=== PATIENT | female | born 1990 | race Caucasian/White ===

== ENCOUNTER 2017-02-12 17:57 | Emergency (ER) | payer OTHER ==
[~2017-02-12] VITALS: Ht 162.6 cm; Wt 73.3 kg
[~2017-02-12 17:57] MED LIST: ACET-1256 PO; IBUP-1050 PO; NAPR-1169 PO
[2017-02-12 18:01] VITALS: TEMP 36.7; Ht 162.6 cm; Wt 73.3 kg
--- NOTE | 2017-02-12 18:29 | EMERGENCY ROOM VISIT NOTE ---
History Report prepared by Allyson: Sakina Barba Under the Supervision of: Dr. Godwin Sim M.D. First contact with patient: 18:07 Chief Complaint: PELVIC PAIN Stated Complaint: IUD,PAIN IN BACK HIP L PART OF ABD History of Present Illness The patient is a 26 year old female who presents to the Emergency Room with complaints of persistent diarrhea that began one week ago. She currently rates her discomfort as a 6/10 in severity. The patient states that for the last week she has had persistent diarrhea, and states that when she eats she becomes nauseous and bloated. She additionally notes some vomiting. The patient notes pain in her right lower abdomen, right hip, and lower back. She denies any recent antibiotics. The patient denies any history of abdominal surgeries. She states that her last menstrual cycle was 2 months ago. The patient states that she has an IUD and states that since she had it placed, she has had ongoing issues. She states that she is in the process of getting her IUD removed. The patient declined any pain medications at this time, stating that the pain medications do not work for her. Source of History: patient Onset: one week ago Position: other (global) Symptom Intensity: 6/10 Quality: other (diarrhea) Timing: other (persistent) Associated Symptoms: + abdominal pain, + back pain (lower back), + nausea, + vomiting Note: Associated Symptoms: right hip pain, bloating Review of Systems See HPI for pertinent positives & negatives. A total of 10 systems reviewed and were otherwise negative. Past Medical & Surgical Medical Problems: (1) Asthma, Unspecified (2) Patient currently Family History Patient reports no known family medical history. Social History Smoking Status: Former Smoker Alcohol Use: occasionally Marital Status: single Housing Status: lives with family Occupation Status: employed Current/Historical Medications Scheduled Levonorgestrel (Iud) (Mirena), INT UTER UD Multivitamins/Minerals (Mvi With Minerals), 1 TAB PO DAILY Ondasetron Odt (Zofran Odt), 4 MG SL Q6H Scheduled PRN Acetaminophen (Tylenol), 1,000 MG PO UD PRN for Headache or Pain Ibuprofen (Advil Migraine), 1 TAB PO DAILY PRN for Headache or Pain Phenylephrine-Ibuprofen (Advil Sinus Congestion & 10-200 mg), 1 TAB PO DAILY PRN for PRN Allergies Coded Allergies: No Known Allergies (Unverified , 11/14/15) Physical Exam Vital Signs Date Time Temp Pulse Resp B/P Pulse Ox O2 Delivery O2 Flow Rate FiO2 02/12/17 20:38 85 18 115/84 100 Room Air 02/12/17 19:31 85 18 116/73 100 02/12/17 18:01 36.7 82 16 117/74 99 Room Air Physical Exam GENERAL: Patient is a healthy-appearing well-nourished HEAD: Normocephalic atraumatic EYES: Ocular movements intact pupils equal and react to light OROPHARYNX mucous membranes are moist no exudates present no erythema or edema present NECK: Supple no nuchal rigidity CHEST: Good equal expansion LUNGS: Clear and equal to auscultation CARDIAC: Normal S1 and S2 ABDOMEN: Soft nontender no guarding BACK: No CVA tenderness EXTREMITIES: No pain upon palpation normal muscle strength in all groups no clubbing cyanosis or edema NEURO: Patient is following commands is answering questions appropriately. Alert and oriented x3 Cranial Nerves 2-12 grossly intact Medical Decision & Procedures ER Provider Diagnostic Interpretation: X-ray results as stated below per interpretation by me and the radiologist: ABDOMEN 2VIEW W/PA CHEST RTN CLINICAL HISTORY: Pt c/o abd pain COMPARISON STUDY: Lidocaine 2015 FINDINGS: The soft tissues, psoas shadows, renal outlines and intestinal gas pattern appear normal. There is no evidence for bowel obstruction. There is no evidence for free intraperitoneal air. No abnormal abdominal calcifications are seen. A frontal view of the chest was performed and is unremarkable. IMPRESSION: Normal study. Electronically signed by: Osmin Pitts M.D. 02/12/2017 7:32 PM Dictated Date/Time: 02/12/2017 7:31 PM Laboratory Results 02/12/17 18:54 Red Blood Count 4.78, Mean Corpuscular Volume 81.2, Mean Corpuscular Hemoglobin 28.2, Mean Corpuscular Hemoglobin Concent 34.8, Mean Platelet Volume 11.0, Neutrophils (%) (Auto) 69.5, Lymphocytes (%) (Auto) 21.4, Monocytes (%) (Auto) 7.8, Eosinophils (%) (Auto) 0.7, Basophils (%) (Auto) 0.4, Neutrophils # (Auto) 6.32, Lymphocytes # (Auto) 1.95, Monocytes # (Auto) 0.71, Eosinophils # (Auto) 0.06, Basophils # (Auto) 0.04 02/12/17 18:54 Test 02/12/17 18:41 02/12/17 18:54 Urine Color YELLOW Urine Appearance CLEAR (CLEAR) Urine pH 5.5 (4.5-7.5) Urine Specific [place] 1.010 (1.000-1.030) Urine Protein NEG (NEG) Urine Glucose (UA) NEG (NEG) Urine Ketones NEG (NEG) Urine Occult Blood TRACE (NEG) Urine Nitrite NEG (NEG) Urine Bilirubin NEG (NEG) Urine Urobilinogen NEG (NEG) Urine Leukocyte Esterase NEG (NEG) Urine WBC (Auto) 1-5 /hpf (0-5) Urine RBC (Auto) 0-4 /hpf (0-4) Urine Hyaline Casts (Auto) 1-5 /lpf (0-5) Urine Epithelial Cells (Auto) 10-20 /lpf (0-5) Urine Bacteria (Auto) NEG (NEG) Urine Test NEG (NEG) White Blood Count 9.10 K/uL (4.8-10.8) Red Blood Count 4.78 M/uL (4.2-5.4) Hemoglobin 13.5 g/dL (12.0-16.0) Hematocrit 38.8 % (37-47) Mean Corpuscular Volume 81.2 fL (80-100) Mean Corpuscular Hemoglobin 28.2 pg (25-34) Mean Corpuscular Hemoglobin Concent 34.8 g/dl (32-36) Platelet Count 194 K/uL (130-400) Mean Platelet Volume 11.0 fL (7.4-10.4) Neutrophils (%) (Auto) 69.5 % Lymphocytes (%) (Auto) 21.4 % Monocytes (%) (Auto) 7.8 % Eosinophils (%) (Auto) 0.7 % Basophils (%) (Auto) 0.4 % Neutrophils # (Auto) 6.32 K/uL (1.4-6.5) Lymphocytes # (Auto) 1.95 K/uL (1.2-3.4) Monocytes # (Auto) 0.71 K/uL (0.11-0.59) Eosinophils # (Auto) 0.06 K/uL (0-0.5) Basophils # (Auto) 0.04 K/uL (0-0.2) RDW Standard Deviation 40.4 fL (36.4-46.3) RDW Coefficient of Variation 13.6 % (11.5-14.5) Immature Granulocyte % (Auto) 0.2 % Immature Granulocyte # (Auto) 0.02 K/uL (0.00-0.02) Anion Gap 6.0 mmol/L (3-11) Est Creatinine Clear Calc Drug Dose 88.8 ml/min Estimated GFR () 96.5 Estimated GFR (Non- 83.2 BUN/Creatinine Ratio 9.3 (10-20) Calcium Level 8.5 mg/dl (8.5-10.1) Total Bilirubin 0.7 mg/dl (0.2-1) Direct Bilirubin 0.2 mg/dl (0-0.2) Aspartate Amino Transf (AST/SGOT) 68 U/L (15-37) Alanine Aminotransferase (ALT/SGPT) 119 U/L (12-78) Alkaline Phosphatase 46 U/L (45-117) Total Protein 7.0 gm/dl (6.4-8.2) Albumin 3.6 gm/dl (3.4-5.0) Lipase 185 U/L (73-393) Labs reviewed by ED physician. Medications Administered Medications (Trade) Dose Ordered Sig/Roxana Route Start Time Stop Time Status Last Admin Dose Admin Ketorolac Tromethamine 30 mg 30 mg NOW STAT IV 02/12/17 19:14 02/12/17 19:16 DC 02/12/17 19:28 30 MG Sodium Chloride (Nss 1000ml) 1,000 ml @ 999 mls/hr Q1H1M STAT IV 02/12/17 19:14 02/12/17 20:14 DC 02/12/17 19:28 999 MLS/HR Ondansetron HCl (Zofran Inj) 4 mg NOW STAT IV 02/12/17 19:14 02/12/17 19:16 DC 02/12/17 19:28 4 MG Metoclopramide HCl (Reglan Inj) 10 mg NOW STAT IV 02/12/17 20:12 02/12/17 20:15 DC 02/12/17 20:29 10 MG Famotidine (Pepcid Tab) 20 mg NOW STAT PO 02/12/17 20:12 02/12/17 20:15 DC 02/12/17 20:29 20 MG Sucralfate (Carafate Tab) 1 gm NOW STAT PO 02/12/17 20:12 02/12/17 20:15 DC 02/12/17 20:29 1 GM Ondansetron HCl (ZOFRAN ODT 4MG Home Pack) 1 homepack UD STAT PO 02/12/17 20:12 02/12/17 20:15 DC 02/12/17 20:29 1 HOMEPACK ED Course 1821: Past medical records reviewed. The patient was evaluated in room B12B. A complete history and physical examination was performed. 1913: Per nursing staff, the patient is requesting pain medications. Ordered Zofran Inj 4 mg IV, Sodium Chloride 1000 ml @ 999 mls/hr IV, Toradol Inj 30 mg IV. 2009: I reevaluated the patient and she is resting comfortably. I discussed the exam findings with her and I discussed the treatment plan. She verbalized complete understanding and agreement. She is ready to go home. 2011: Ordered Zofran Odt 4 mg homepack PO, Sucralfate 1 gm PO, Pepcid Tab 20 mg PO, Reglan Inj 10 mg IV. Medical Decision Differential diagnosis: Etiologies such as appendicitis, diverticulitis, PUD, biliary pathology, UTI, pancreatitis, obstruction, mesenteric ischemia, aortic pathology, infections, inflammatory bowel disease, renal colic, as well as others were entertained. This is a 26-year-old female who presents emergency department complaining of diarrhea. I will note that despite waiting in the emergency department for possibly 3 hours the patient was unable to provide a stool sample here. Serial abdominal examinations were performed on the patient in the emergency department and at no time did the patient exhibit surgical abdomen. Based on this finding as well as the fact that the patient has a normal white blood cell count I believe that a CAT scan of the abdomen will not provide any further findings. The patient was given Toradol in the emergency department along with Zofran. Repeat examination revealed improvement the patient's symptoms. I do feel that the patient as well as to be discharged home for follow-up with her primary care physician. Patient was in agreement with the treatment plan. I recommended a MiraLAX cleanout to try and regulate the patient's bowel movements better. Impression Primary Impression: Diarrhea Scribe Attestation The scribe's documentation has been prepared under my direction and personally reviewed by me in its entirety. I confirm that the note above accurately reflects all work, treatment, procedures, and medical decision making performed by me. Departure Information Dispostion Home / Self-Care Prescriptions Ondasetron Odt (ZOFRAN ODT) 4 Mg Tab 4 MG SL Q6H for Nausea, #6 TAB Prov: Godwin Sim MD 02/12/17 Referrals Osvaldo Zamora M.D. (PCP) Alexis Prasad MD Forms HOME CARE DOCUMENTATION FORM, IMPORTANT VISIT INFORMATION, WORK / SCHOOL INSTRUCTIONS Patient Instructions ED Vomiting Diarrhea Nonspecific Ad, My [facility], Vomit Diarrhea Self Care Additional Instructions Follow up with GI Take 10 oz bottle of miralax; Add to 16 oz of gatorade Drink continuously until moving creamy stools Clear liquid diet for next 48 hours Return if you develop fevers or pain worsens Culture results are usually available in approx 48 hours You have been examined and treated today on an emergency basis only. This is not a substitute for, or an effort to provide, complete comprehensive medical care. It is impossible to recognize and treat all injuries or illnesses in a single emergency department visit. It is therefore important that you follow up closely with Dr Zamora. Call as soon as possible for an appointment. Thank you for your time and consideration. I look forward to speaking with you again soon. Please don't hesitate to call us if you have any questions. Problem Qualifiers Primary Impression: Diarrhea Diarrhea type: unspecified type Qualified Codes: R19.7 - Diarrhea, unspecified
[2017-02-12] MEDS ORDERED: MULT-513 PO (18:54)
[2017-02-12] MEDS ORDERED: PHEN-1083 PO (18:54)
[2017-02-12] MEDS ORDERED: LEVOIUD INT UTER (18:54)
[2017-02-12] MEDS ORDERED: IBUP200C11 PO (18:54)
[2017-02-12 19:00] LABS: URINE APPEARANCE CLEAR (CLEAR); URINE BILIRUBIN NEG (NEG); URINE COLOR YELLOW; URINE NITRITE NEG (NEG); URINE PH 5.5 (4.5-7.5); UROBILINOGEN NEG (NEG)
[2017-02-12 19:04] LABS: MANUAL MICROSCOPIC REQUIRED? NO; REVIEW REQ? NO
[2017-02-12] MEDS ORDERED: KETOROLAC TROMETHAMINE 30 MG/ML VIAL IV STA (19:14)
[2017-02-12] MEDS ORDERED: ONDANSETRON INJ 2 MG/ML 2 ML VIAL IV STA (19:14)
[2017-02-12] MEDS ORDERED: SODIUM CHLORIDE 0.9% 1000ML 1,000 ML IV STA (19:14)
[2017-02-12 19:19] LABS: BASO % 0.4 %; BASO ABS # 0.04 K/uL (0-0.2); COMPLETE YES; EOS % 0.7 %; HEMATOCRIT 38.8 % (37-47); IG% 0.2 %; LYMPH % 21.4 %; LYMPH ABS # 1.95 K/uL (1.2-3.4); MEAN CELL VOLUME 81.2 fL (80-100); MEAN CORPUSCULAR HEMOGLOBIN 28.2 pg (25-34); MEAN CORPUSCULAR HGB CONC 34.8 g/dl (32-36); MONO % 7.8 %; NEUT % 69.5 %; PLATELET COUNT 194 K/uL (130-400); RED BLOOD COUNT 4.78 M/uL (4.2-5.4)
--- NOTE | 2017-02-12 19:34 | DIAGNOSTIC IMAGING REPORT ---
ABDOMEN 2VIEW W/PA CHEST RTN CLINICAL HISTORY: Pt c/o abd pain COMPARISON STUDY: Lidocaine 2016 FINDINGS: The soft tissues, psoas shadows, renal outlines and intestinal gas pattern appear normal. There is no evidence for bowel obstruction. There is no evidence for free intraperitoneal air. No abnormal abdominal calcifications are seen. A frontal view of the chest was performed and is unremarkable. IMPRESSION: Normal study. Electronically signed by: Osmin Pitts M.D. 02/12/2017 7:32 PM Dictated Date/Time: 02/12/2017 7:31 PM
[2017-02-12 19:54] LABS: BUN/CREATININE RATIO 9.3 (10-20); CALCIUM 8.5 mg/dl (8.5-10.1); CREATININE 0.95 mg/dl (0.60-1.20); POTASSIUM 3.4 mmol/L (3.5-5.1)
[2017-02-12] MEDS ORDERED: FAMOTIDINE 20 MG TAB PO STA (20:12)
[2017-02-12] MEDS ORDERED: METOCLOPRAMIDE HCL INJ 5 MG/ML 2 ML VIAL IV STA (20:12)
[2017-02-12] MEDS ORDERED: GI COCKTAIL PO STA (20:12)
[2017-02-12] MEDS ORDERED: ONDANSETRON HOME PACK 4MG OD TAB PO STA (20:12)
[2017-02-12] MEDS ORDERED: SUCRALFATE 1 GM TAB PO STA (20:12)
[2017-02-12] MEDS ORDERED: ONDA4TAB10 SL (20:16)
[2017-02-12 20:38] VITALS: BP 115/84; PULSE 85; O2SAT 100
== END 2017-02-12 20:38 | disposition home or self-care (01) ==
LOC: C.EDB 17:58
DX: R19.7 Diarrhea, unspecified (principal); J45.909 Unspecified asthma, uncomplicated; Z87.891 Personal history of nicotine dependence; Z97.5 Presence of (intrauterine) contraceptive device

== ENCOUNTER 2018-02-21 23:23 | Emergency (ER) | payer OTHER ==
[~2018-02-21] VITALS: Ht 162.6 cm; Wt 81.8 kg
[~2018-02-21 23:23] MED LIST changes: -IBUP-1050 PO; +IBUP200C11 PO; +LEVO1IUD2 INT UTER; +MULT-513 PO; -NAPR-1169 PO; +PHEN-1083 PO
[2018-02-21 23:30] VITALS: TEMP 36.7; Ht 162.6 cm; Wt 81.8 kg
--- NOTE | 2018-02-22 00:07 | EMERGENCY ROOM VISIT NOTE ---
History Report prepared by Allyson: Yunior Morgan Under the Supervision of: Dr. Kinza Plata D.O. First contact with patient: 23:34 Chief Complaint: ABDOMINAL PAIN Stated Complaint: GALLBLADDER CYSTS BACK/RIGHT SIDE Nursing Triage Summary: c/o rlq pain seen by her dr yesterday and everything was ok. has had pain for 3 days. History of Present Illness The patient is a 27 year old female who presents to the Emergency Room with complaints of constant right side abdominal cramping for two days. She reports her abdomen is swelling and the pain is radiating underneath her right ribs. She reports associated right arm pain. She notes back pain. She denies any nausea or vomiting. She reports chills, though has not recorded her temperature. She notes that lying down and eating worsens the pain. She has a history of PCOS and reports this pain is worse than the cystic pain. She notes her cysts were checked six months ago and there were no changes. She states that she has not had cystic symptoms in four years. She took 500 mg Naproxen at noon, which she states was relieving. She regularly takes anxiety medication. She states that she has been in a monogamous relationship for the last three years, though notes her boyfriend tours a lot, so she is unsure if she may have an STD. She reports being on the Mirena for two years and occasionally has vaginally bleeding that lasts for an hour. She reports a malodorous discharge, which is new. She feels like she has the urge to urinate more often and pass stools more often. She denies any abdominal surgeries. She has been before, though delivered vaginally. Patient denies any trauma, no change in activity. Source of History: patient Onset: two days Position: abdomen (right side) Quality: cramping, other (swelling) Timing: constant Modifying Factors (Worsening): eating, other (lying down) Modifying Factors (Relieving): other (Naproxen) Associated Symptoms: + chills, + back pain, + urinary symptoms (need to urinate more often), No nausea, No vomiting Note: Notes right arm pain and malodorous discharge. Review of Systems See HPI for pertinent positives & negatives. A total of 10 systems reviewed and were otherwise negative. Past Medical & Surgical Medical Problems: (1) Anxiety (2) Asthma, Unspecified (3) Depression (4) Patient currently (5) PCOS (polycystic ovarian syndrome) (6) Right arm cellulitis (7) Right arm cellulitis (8) Vaginal discharge Family History FHx: cancer Kidney disease Kidney stones Social History Smoking Status: Current Some Day Smoker (1 cigarette a week) Alcohol Use: occasionally (1 bottle/week) Drug Use: none Marital Status: in relationship Housing Status: lives with family Occupation Status: employed Current/Historical Medications Scheduled Levonorgestrel (Iud) (Mirena), INT UTER UD Multivitamins/Minerals (Mvi With Minerals), 1 TAB PO DAILY Ondasetron Odt (Zofran Odt), 4 MG SL Q8 Paroxetine HCl (Paroxetine), 10 MG PO DAILY Scheduled PRN Acetaminophen (Tylenol), 1,000 MG PO UD PRN for Headache or Pain Fluticasone Propionate (Nasal) (Flonase Allergy Relief), 2 SPRAYS EDISON DAILY PRN for CONGESTION Ibuprofen (Advil Migraine), 1 TAB PO DAILY PRN for Headache or Pain Allergies Uncoded Allergies: TRISTAN SPIDERS (Allergy, Severe, CELLULITIS AND DEVELOPS INTO BLOOD POISONING , 02/22/18) "CHEAP METALS" (Allergy, Intermediate, RASH, SKIN BLISTERS, 02/22/18) Physical Exam Vital Signs Date Time Temp Pulse Resp B/P (MAP) Pulse Ox O2 Delivery O2 Flow Rate FiO2 02/22/18 03:20 72 16 123/73 99 02/22/18 02:24 67 16 105/83 98 Room Air 02/22/18 00:54 77 16 131/80 98 Room Air 02/21/18 23:30 36.7 72 18 107/76 98 Room Air Physical Exam GENERAL: alert, well appearing, well nourished, no distress, non-toxic EYE EXAM: normal conjunctiva, PERRL and EOM's grossly intact OROPHARYNX: no exudate, no erythema, lips, buccal mucosa, and tongue normal and mucous membranes are moist NECK: supple, no nuchal rigidity, no adenopathy, non-tender LUNGS: Clear to auscultation. Normal chest wall mechanics, no wheezes/rhonchi/ rales HEART: no murmurs, S1 normal and S2 normal ABDOMEN: abdomen soft, non-tender, normo-active bowel sounds, no masses, no rebound or guarding. BACK: Back is symmetrical on inspection and there is no deformity, no midline tenderness, no CVA tenderness. SKIN: no rashes and no bruising UPPER EXTREMITIES: upper extremities are grossly normal. Full range of motion, normal pulses. LOWER EXTREMITIES: No pitting edema. Full range of motion, normal pulses. NEURO EXAM: Normal sensorium, cranial nerves II-XII grossly intact, normal speech, no gross weakness of arms, no gross weakness of legs. Normal sensory exam. Normal gait. Medical Decision & Procedures ER Provider Diagnostic Interpretation: Radiology results have been interpreted by the radiologist and reviewed by me. US PELVIC/ENDOVAG: IUD in place. Endometrial stripe measures 6. Small amount of fluid in the lower uterine endometrial cavity. Blood flow seen to both ovaries. 1.4 cm dominant right ovarian follicle. No adnexal masses. No free pelvic fluid. Radiologist: Dank Mckinney MD Study ready at 01:02 and initial results transmitted at 01:05 US ABDOMEN LIMITED: Gallbladder is normal. Sonographic Castro's sign is absent. No biliary dilatation. No free fluid. Visualized liver and other visualized organs are unremarkable. Radiologist: Dank Mckinney MD Study ready at 00:58 and initial results transmitted at 01:04 CT ABDOMEN & PELVIS Without Contrast: IUD in place. No adnexal masses. No appendicitis, inflammatory changes of bowel or bowel obstruction. No free fluid. No free air. Aorta, liver, spleen, pancreas , gallbladder, and kidneys are unremarkable. Radiologist: Dank Mckinney MD Study ready at 02:22 and initial results transmitted at 02:28 Laboratory Results 02/21/18 23:50 Red Blood Count 5.48, Mean Corpuscular Volume 85.9, Mean Corpuscular Hemoglobin 29.4, Mean Corpuscular Hemoglobin Concent 34.2, Mean Platelet Volume 11.0, Neutrophils (%) (Auto) 58.8, Lymphocytes (%) (Auto) 32.4, Monocytes (%) (Auto) 6.4, Eosinophils (%) (Auto) 1.8, Basophils (%) (Auto) 0.4, Neutrophils # (Auto) 6.76, Lymphocytes # (Auto) 3.73, Monocytes # (Auto) 0.74, Eosinophils # (Auto) 0.21, Basophils # (Auto) 0.05 02/21/18 23:50 Test 02/21/18 23:40 02/21/18 23:50 Urine Color YELLOW Urine Appearance CLEAR (CLEAR) Urine pH 7.5 (4.5-7.5) Urine Specific [place] 1.020 (1.000-1.030) Urine Protein NEG (NEG) Urine Glucose (UA) NEG (NEG) Urine Ketones TRACE (NEG) Urine Occult Blood TRACE (NEG) Urine Nitrite NEG (NEG) Urine Bilirubin NEG (NEG) Urine Urobilinogen NEG (NEG) Urine Leukocyte Esterase NEG (NEG) Urine WBC (Auto) 1-5 /hpf (0-5) Urine RBC (Auto) 5-10 /hpf (0-4) Urine Hyaline Casts (Auto) 0 /lpf (0-5) Urine Epithelial Cells (Auto) 20-30 /lpf (0-5) Urine Bacteria (Auto) NEG (NEG) White Blood Count 11.51 K/uL (4.8-10.8) Red Blood Count 5.48 M/uL (4.2-5.4) Hemoglobin 16.1 g/dL (12.0-16.0) Hematocrit 47.1 % (37-47) Mean Corpuscular Volume 85.9 fL (80-100) Mean Corpuscular Hemoglobin 29.4 pg (25-34) Mean Corpuscular Hemoglobin Concent 34.2 g/dl (32-36) Platelet Count 253 K/uL (130-400) Mean Platelet Volume 11.0 fL (7.4-10.4) Neutrophils (%) (Auto) 58.8 % Lymphocytes (%) (Auto) 32.4 % Monocytes (%) (Auto) 6.4 % Eosinophils (%) (Auto) 1.8 % Basophils (%) (Auto) 0.4 % Neutrophils # (Auto) 6.76 K/uL (1.4-6.5) Lymphocytes # (Auto) 3.73 K/uL (1.2-3.4) Monocytes # (Auto) 0.74 K/uL (0.11-0.59) Eosinophils # (Auto) 0.21 K/uL (0-0.5) Basophils # (Auto) 0.05 K/uL (0-0.2) RDW Standard Deviation 40.7 fL (36.4-46.3) RDW Coefficient of Variation 12.9 % (11.5-14.5) Immature Granulocyte % (Auto) 0.2 % Immature Granulocyte # (Auto) 0.02 K/uL (0.00-0.02) Prothrombin Time 10.1 SECONDS (9.0-12.0) Prothromb Time International Ratio 1.0 (0.9-1.1) Anion Gap 6.0 mmol/L (3-11) Est Creatinine Clear Calc Drug Dose 91.9 ml/min Estimated GFR () 94.6 Estimated GFR (Non- 81.6 BUN/Creatinine Ratio 15.7 (10-20) Calcium Level 8.9 mg/dl (8.5-10.1) Total Bilirubin 0.8 mg/dl (0.2-1) Aspartate Amino Transf (AST/SGOT) 24 U/L (15-37) Alanine Aminotransferase (ALT/SGPT) 34 U/L (12-78) Alkaline Phosphatase 59 U/L (45-117) Total Protein 8.4 gm/dl (6.4-8.2) Albumin 4.2 gm/dl (3.4-5.0) Globulin 4.2 gm/dl (2.5-4.0) Albumin/Globulin Ratio 1.0 (0.9-2) Lipase 182 U/L (73-393) Human Chorionic Gonadotropin, Qual NEG (NEG) Laboratory results per my review. Medications Administered Medications (Trade) Dose Ordered Sig/Roxana Route Start Time Stop Time Status Last Admin Dose Admin Ondansetron HCl (ZOFRAN ODT 4MG Home Pack) 1 homepack UD ONCE PO 02/22/18 03:15 02/22/18 03:16 DC 02/22/18 03:19 1 HOMEPACK ED Course 2347: The patient was evaluated in room A10. A complete history and physical exam was performed. 0138: I reassessed the patient at this time. She is still having pain. 0303: I reassessed the patient at this time. I discussed the results and treatment plan with the patient. I answered all pertaining questions that she had. She expressed understanding and verbalized agreement. The patient will be discharged home. 0315: Ordered Zofran 1 homepack PO Medical Decision Differential diagnoses includes but is not limited to gastritis, peptic ulcer disease, GERD, gallbladder disease, pancreatitis, small bowel obstruction, acute coronary syndrome, pericarditis, ischemic bowel, irritable bowel disease, irritable bowel syndrome, appendicitis, diverticulitis, malignancy, hernia, urinary tract infection, torsion, /ectopic (if female), perforation, trauma, infectious. Patient well-appearing here throughout. Patient offered additional pain medications and she declined. Patient did not appear in any distress. Patient hemodynamically stable throughout. Labs and imaging reassuring. Patient with a dominant follicle noted on ultrasound, however no larger cyst more suggestive of her worsening pain. Given that the patient's pain was right-sided and we could not otherwise exclude additional pathology such as appendicitis patient was sent for CAT scan. CAT scan was read by stat read as being negative for additional acute pathology. Discussed with patient symptoms to watch and return for, follow-up with her family doctor, possible differential diagnosis, she verbalized understanding and was agreeable with plan. Medication Reconcilliation Current Medication List: was personally reviewed by me Blood Pressure Screening Patient's blood pressure: Normal blood pressure Impression Primary Impression: Right lower quadrant abdominal pain Scribe Attestation The scribe's documentation has been prepared under my direction and personally reviewed by me in its entirety. I confirm that the note above accurately reflects all work, treatment, procedures, and medical decision making performed by me. Departure Information Dispostion Home / Self-Care Prescriptions Ondasetron Odt (ZOFRAN ODT) 4 Mg Tab 4 MG SL Q8 for Nausea, #20 TAB Prov: Kinza Plata, 02/22/18 Referrals No Doctor, Assigned (PCP) Tobias Boland D.O. Forms HOME CARE DOCUMENTATION FORM, IMPORTANT VISIT INFORMATION Patient Instructions ED Abdominal Pain Unkn Cause, My [facility] Additional Instructions These take your regular medications as prescribed, and eat and drink normally. Please avoid any strenuous activity or heavy lifting until you are feeling better. Please follow-up with your family doctor as a precaution. If you have any worsening pain, develop nausea vomiting, diarrhea, fevers or chills, abnormal vaginal discharge, back pain, you have any other new concerns, please return the emergency room.
[2018-02-22 00:10] LABS: BASO % 0.4 %; BASO ABS # 0.05 K/uL (0-0.2); EOS % 1.8 %; EOS ABS # 0.21 K/uL (0-0.5); HEMATOCRIT 47.1 % (37-47); HEMOGLOBIN 16.1 g/dL (12.0-16.0); IG# 0.02 K/uL (0.00-0.02); LYMPH % 32.4 %; LYMPH ABS # 3.73 K/uL (1.2-3.4); MEAN CELL VOLUME 85.9 fL (80-100); MEAN CORPUSCULAR HEMOGLOBIN 29.4 pg (25-34); MEAN CORPUSCULAR HGB CONC 34.2 g/dl (32-36); MONO % 6.4 %; MONO ABS # 0.74 K/uL (0.11-0.59); NEUT % 58.8 %; NEUT ABS # 6.76 K/uL (1.4-6.5); PLATELET COUNT 253 K/uL (130-400); RED CELL DISTRIBUTION WIDTH CV 12.9 % (11.5-14.5); RED CELL DISTRIBUTION WIDTH SD 40.7 fL (36.4-46.3); WHITE BLOOD COUNT 11.51 K/uL (4.8-10.8)
[2018-02-22] MEDS ORDERED: PARO10TA3 PO (00:10)
[2018-02-22] MEDS ORDERED: FLUT0.15 NAE (00:10)
[2018-02-22 00:18] LABS: ALBUMIN 4.2 gm/dl (3.4-5.0); CALCIUM 8.9 mg/dl (8.5-10.1); CREATININE 0.96 mg/dl (0.60-1.20); POTASSIUM 3.8 mmol/L (3.5-5.1)
[2018-02-22 00:21] LABS: TOTAL PROTEIN 8.4 gm/dl (6.4-8.2)
[2018-02-22] MEDS ORDERED: ONDA4TAB10 SL (03:09)
[2018-02-22] MEDS ORDERED: ONDANSETRON HOME PACK 4MG OD TAB PO ONE (03:15)
[2018-02-22 03:20] VITALS: BP 123/73; PULSE 72; O2SAT 99
--- NOTE | 2018-02-22 06:20 | DIAGNOSTIC IMAGING REPORT ---
ABDOMEN LIMITED (US) HISTORY: Pain. Nausea. ruq pain. COMPARISON: None. FINDINGS: Pancreas: The pancreas demonstrates a normal echotexture. Liver: Unremarkable. Gallbladder: No gallbladder wall thickening. No gallstones. CBD: 4 mm Right kidney: No hydronephrosis. IMPRESSION: No significant abnormality identified within the within the right upper quadrant. The above report was generated using voice recognition software. It may contain grammatical, syntax or spelling errors. Electronically signed by: Osmin Pitts M.D. 02/22/2018 6:19 AM Dictated Date/Time: 02/22/2018 6:18 AM
--- NOTE | 2018-02-22 06:31 | DIAGNOSTIC IMAGING REPORT ---
TRANSVAG-FEMALE PELVIS HISTORY: Pain rlq pain, hx cysts COMPARISON: None. FINDINGS: Uterus: Midline with a greatest dimension of 7.6 cm. Intrauterine device is in the central canal and good position Endometrial stripe: 6 mm Right ovary: 3.6 cm with normal vascular flow. 1.3 cm follicular cyst. Left ovary: 3.3 cm maximum dimension with normal vascular flow. Miscellaneous:No pelvic free fluid. IMPRESSION: 1. Intrauterine device in good position. Otherwise negative pelvic ultrasound. Small right ovarian cyst. The above report was generated using voice recognition software. It may contain grammatical, syntax or spelling errors. Electronically signed by: Osmin Pitts M.D. 02/22/2018 6:30 AM Dictated Date/Time: 02/22/2018 6:29 AM
--- NOTE | 2018-02-22 07:19 | DIAGNOSTIC IMAGING REPORT ---
ABD/PELVIS NO IV OR ORAL CONT CT DOSE: 517.51 mGy.cm HISTORY: Pain rlq pain, ?appy vs possible stone TECHNIQUE: Multiaxial CT images of the abdomen and pelvis were performed without contrast. A dose lowering technique was utilized adhering to the principles of ALARA. COMPARISON STUDY: None. FINDINGS: The lung bases are clear. The unenhanced liver, spleen, gallbladder, pancreas, kidneys, and adrenal glands are within normal limits. No bowel wall thickening or obstruction. The pelvic organs are unremarkable. No suspicious lytic or blastic osseous lesions. Normal appendix. Intrauterine device within the central uterus. IMPRESSION: No significant abnormality identified within the abdomen or pelvis. The above report was generated using voice recognition software. It may contain grammatical, syntax or spelling errors. Electronically signed by: Osmin Pitts M.D. 02/22/2018 7:18 AM Dictated Date/Time: 02/22/2018 7:17 AM
== END 2018-02-22 03:20 | disposition home or self-care (01) ==
LOC: C.EDB 23:25 → C.EDA 02-22 03:20
DX: R10.31 Right lower quadrant pain (principal); F41.9 Anxiety disorder, unspecified; Z79.899 Other long term (current) drug therapy; F32.9 Major depressive disorder, single episode, unspecified; Z84.1 Family history of disorders of kidney and ureter; F17.210 Nicotine dependence, cigarettes, uncomplicated